=== PATIENT | male | born 1970 | race Caucasian/White ===

== ENCOUNTER → 2024-06-05 | Day surgery (SDC) | payer MEDICAID ==
[~2024-06-05] VITALS: Ht 170.2 cm; Wt 72.6 kg
[~2024-06-05] MED LIST: ALBU18HF2 INH; BUPIVACAINE HCL/PF 0.5% (5MG/ML) 10ML ONE; CEFAZOLIN SODIUM 1000MG/VIAL ONE; CETI-89 PO; DIPHENHYDRAMINE 25MG CAPSULE PO PRN; EPHEDRINE SULFATE 50MG/ML VIAL ONE; FENTANYL CITRATE/PF 50MCG/ML 2ML VIAL ONE; GLYCOPYRROLATE 0.2 MG/ML 2ML VIAL ONE; MIDAZOLAM HCL 2 MG/2 ML VIAL ONE; NEOSTIGMINE METHYLSULFATE 1MG/ML 10 ML VIAL ONE; ONDANSETRON HCL 4MG/2ML INJ ONE; PHENYLEPHRINE HCL 10MG/ML 1ML IV ONE; PROPOFOL 200MG/20ML VIAL IV ONE; ROCURONIUM BROMIDE 10MG/ML VIAL 5ML IV ONE; SKIN ADHESIVE 0.7 GM EA TOP ONE
[2024-06-05] MEDS: LACTATED RINGERS 1,000 ML IV SCH (06:43)
[2024-06-05] MEDS: ONDANSETRON HCL 4MG/2ML INJ IV PRN (09:18)
[2024-06-05 09:19] VITALS: BP 143/91; PULSE 56; RESP 15
[2024-06-05] MEDS: HYDROMORPHONE HCL/PF 1MG/ML INJ IV PRN (09:19)
[2024-06-05] MEDS: DEXAMETHASONE 4MG/ML 1ML VIAL IV PRN (10:45)
[2024-06-05] MEDS: METOCLOPRAMIDE HCL 10MG/2ML VIAL IV PRN (10:46)
== END | disposition home or self-care (01) ==
LOC: OR 05:39
PROVIDERS: ATTEND Surgery
DX: K40.90 Unilateral inguinal hernia, without obstruction or gangrene, not specified as recurrent (principal); J45.909 Unspecified asthma, uncomplicated; Z79.899 Other long term (current) drug therapy; Z98.890 Other specified postprocedural states
CPT/HCPCS: 49505; 88302; J3010; J0665; J0690; J1100; J3490 ×3; J2765; J2250; J2405; J2371; J2704; J1171; J7030; J2710; C1781